=== PATIENT | male | born 1995 | race Caucasian/White ===

== ENCOUNTER 2024-07-09 19:00 | Emergency (ER) | payer SELFPAY ==
[2024-07-09 19:11] VITALS: BP 125/78; PULSE 83; RESP 16; TEMP 36.4; O2SAT 100; BMI 23.7
[2024-07-10] MEDS: IBUPROFEN 400 MG TABLET PO (00:26)
[2024-07-10] MEDS: TET,DIPH,PERTUSS(ACELL),VAC/PF 0.5 ML SYRINGE IM (01:56)
[2024-07-10 02:01] VITALS: BP 150/89; PULSE 87; RESP 17; O2SAT 99
[2024-07-10] MEDS: BACITRACIN OINT 0.9 GM PCKT 1 APPLIC TOP (02:20)
--- NOTE | 2024-07-10 02:23 | ED_ITS ---
HPI - Wound/Laceration General Chief Complaint: Wound/Laceration Stated Complaint: LT hand cut,wound Time Seen by Provider: 07/10/24 02:03 Source: patient Mode of arrival: Ambulatory History of Present Illness HPI narrative: Otherwise healthy 28-year-old man cutting some plastic with a razor blade it is unclear whether the razor blade slipped or the plastic slipped but he has ended up sustaining 4 cm laceration to the palm of his left hand that is fairly superficial no neurovascular injury appreciated, bleeding is controlled. Related Data Previous Rx's Medication Instructions Recorded cephalexin 500 mg capsule 500 mg PO TID #15 caps 07/10/24 Allergies Allergy/AdvReac Type Severity Reaction Status Date / Time No Known Drug Allergies Allergy Verified 07/09/24 19:11 Review of Systems Review of Systems Narrative: Pertinent positive and negative findings as per HPI Patient History Social History Smoking Status: Current some day smoker Smoking Status: Current some day smoker Exam Initial Vital Signs Initial Vital Signs: Vital Signs Temperature 97.5 F L 07/09/24 19:11 Pulse Rate 83 07/09/24 19:11 Respiratory Rate 16 07/09/24 19:11 Blood Pressure 125/78 07/09/24 19:11 Pulse Oximetry 100 07/09/24 19:11 Oxygen Delivery Method Room Air 07/09/24 19:11 General: Alert appropriate in no acute distress Respiratory: Able to speak in full sentences, no obvious respiratory distress Skin: No obvious rashes, warm and dry Neurologic: Grossly intact no obvious asymmetries or abnormalities Psych: appropriate insight and affect, cooperative Extremity: 4 cm simple laceration dorsum of the left hand. Neurovascularly intact, after anesthetized deep exploration does not suggest deeper tissue inf ection, no obvious tendon injury Procedures Laceration Repair left hand: Time of procedure: 02:25 Site: hand Side (If applicable): left Size (cm): 4 Description: linear Depth: simple, single layer Local Anesthetic: lidocaine 1% Amount of anesthesia used (mL): 3 Pre-repair: wound explored, irrigated extensively and deep structures intact Skin layer closed with: nylon Skin layer suture size: 4-0 Number of sutures: 4 Technique: simple, interrupted Course Orders Ordered: Discontinued Medications Bacitracin (Bacitracin Oint 0.9 Gm Pckt) 1 applic TOP NOW ONE Stop: 07/10/24 02:16 Last Admin: 07/10/24 02:20 Dose: 1 applic Documented By: MOLLY Diphtheria/Tetanus/Acell Pertussis (Tet,Diph,Pertuss(Acell),Vac/Pf 0.5 Ml Syringe) 0.5 ml IM .ONCE ONE Stop: 07/09/24 19:53 Last Admin: 07/10/24 01:56 Dose: 0.5 ml Documented By: MOLLY Ibuprofen (Ibuprofen 400 Mg Tablet) 400 mg PO NOW ONE Stop: 07/10/24 00:21 Last Admin: 07/10/24 00:26 Dose: 400 mg Documented By: KARMA Vital Signs Vital signs: Vital Signs - 8 hr 07/09/24 19:11 07/10/24 02:01 Temperature 97.5 F L Pulse Rate 83 87 Respiratory Rate 16 17 Blood Pressure 125/78 150/89 H Pulse Oximetry 100 99 Oxygen Delivery Method Room Air Room Air MDM - Wound/Laceration MDM Narrative Medical decision making narrative: 28-year-old gentleman sustaining 4 cm simple laceration to the palm of his left hand while at home. Tetanus status is updated today. He had a sutured without any difficulty. Imaging studies show no underlying fractures or foreign bodies. He has tolerated the procedure well. Because it is the palmar surface of his hand will suggest 5 days of Keflex. Prescription is sent to his pharmacy of choice. Discussed superficial as well as deep tissue infection signs and symptoms and reasons to return to the emergency department. will recommend sutures come out on or about July 19. He is safe for discharge Discharge Plan Departure Patient Disposition: Home Clinical Impression: Laceration Instructions: DI for Laceration Repair Activity Restrictions/Additional Instructions: thank you for coming in today the cut tear hand was through the skin but does not involve any of the nerves or tendons. Your x-ray was reassuring you are given a tetanus shot today and unless you have another significant wound you will not need another 1 until 2034 with hand wounds, I was do worry about infection. I am going to give you a prescription for cephalexin, it is 3 times a day for 5 days. Please do complete this. If you find that you are having increasing redness swelling or drainage to the wound or redness swelling to the entire hand itself, this is not normal and does need to be re-evaluated. Stitches need to come out on or about July 19 using 400 mg of ibuprofen (2 [id number] pills) and 1 Tylenol every 6 hours can be very helpful in controlling pain. please keep a clean dressing over the wound until sutures are out If you find that you are getting worse or develop any new symptoms, please feel free to return to the emergency department for further evaluation. Prescriptions: New cephalexin 500 mg capsule 500 mg PO TID Qty: 15 0RF Stand Alone Forms: Patient Portal/API/Survey
== END 2024-07-10 02:36 | disposition home or self-care (01) ==
PROVIDERS: Emergency Provider Emergency Medicine
DX: S61.412A Laceration without foreign body of left hand, initial encounter (principal); Z23 Encounter for immunization; W26.0XXA Contact with knife, initial encounter
CPT/HCPCS: 12002; 90471; 99284; 90715